=== PATIENT | female | born 1990 | race Two or more races ===

== ENCOUNTER 2021-02-19 03:28 | Emergency (ER) | payer SELFPAY ==
[~2021-02-19] VITALS: Ht 162.6 cm; Wt 66.7 kg
--- NOTE | 2021-02-19 03:37 | NUR ---
[facility] REPORT DONE
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
--- NOTE | 2021-02-19 05:42 | NUR ---
Patient discharged to home in stable condition. Written and verbal after care instructions given. Patient verbalizes understanding of instruction.
[2021-02-19 05:43] VITALS: BP 140/72
== END 2021-02-19 05:43 | disposition home or self-care (01) ==
LOC: ER 03:30
DX: S09.8XXA Other specified injuries of head, initial encounter (principal); R51.9 Headache, unspecified; F10.10 Alcohol abuse, uncomplicated; Y90.9 Presence of alcohol in blood, level not specified; Y04.8XXA Assault by other bodily force, initial encounter; Y93.89 Activity, other specified; Y92.89 Other specified places as the place of occurrence of the external cause; Y99.8 Other external cause status
CPT/HCPCS: 70450-TC; 70486-TC